=== PATIENT | female | born 1960 | race African-American/Black ===

== ENCOUNTER 2023-09-15 16:10 | Observation (INO) | payer OTHER, SELFPAY ==
[2023-09-15 13:30] VITALS: BP 136/91
[2023-09-15 14:07] VITALS: BMI 30.3
[2023-09-15 14:08] VITALS: BP 134/90
[2023-09-15 14:18] LABS: % Basophils 0.4 % (0-2); % Eosinophils 3.7 % (0-6); % Immature Granulocytes 0.2 % (0-0.5); % Monocytes 7.8 % (1.7-9.3); % Neutrophils 55.9 % (42.2-75.2); Absolute Eosinophils 0.2 10^3/uL (0-0.7); Absolute Lymphocytes 1.7 10^3/uL (1.2-3.4); Absolute Monocytes 0.4 10^3/uL (0.1-0.6); Absolute Neutrophils 2.9 10^3/uL (1.4-6.5); Hemoglobin 13.1 g/dL (12.0-16.0); Mean Corp Hgb Conc. 33.6 g/dL (33.0-37.0); Mean Corpuscular Hgb 26.5 pg (27.0-31.0); Mean Corpuscular Volume 78.9 fL (81.0-99.0); Mean Platelet Volume 9.4 fL (7.4-10.4); Nucleated Red Blood Cells % 0 %; Platelet Count 278 10^3/uL (130-400); Red Blood Cell Count 4.94 10^6/uL (4.20-5.40); Red Cell Dist. Width 13.4 % (11.5-14.5); White Blood Cell Count 5.2 10^3/uL (4.8-10.8)
[2023-09-15 14:28] LABS: ALT (SGPT) 17 U/L (0-35); AST (SGOT) 20 U/L (14-36); Alkaline Phosphatase 76 U/L (38-126); Blood Urea Nitrogen 18 mg/dl (7-17); Calcium 9.7 mg/dl (8.4-10.2); Carbon Dioxide 26 mmol/L (22-30); Chloride 107 mmol/L (98-107); Estimated Creatinine Clearance 76 ml/min; Glucose 98 mg/dl (70-99); Potassium 3.8 mmol/L (3.5-5.1); Sodium 139 mmol/L (135-145); Total Bilirubin 0.7 mg/dl (0.2-1.3); Total Protein 6.9 g/dl (6.3-8.2); eGFR > 60.00
[2023-09-15 14:32] LABS: INR 1.03; PT 13.4 Sec (11.4-14.6)
[2023-09-15 14:33] LABS: APTT 27.5 Sec (23.4-35.0)
--- NOTE | 2023-09-15 15:11 | ED.GENMED ---
History of Present Illness
General
Chief Complaint: Rectal Bleeding
Source: patient
Exam Limitations: none
Time Seen by Provider: 09/15/23 14:32
Nursing documentation reviewed up to this point in time: agreed with
Travel History
Have you had any contact with someone who has COVID-19?: No
Do you have any symptoms of coronavirus? Fever > 100 degrees, chills, cough, shortness of breath, sore throat, loss of taste or smell, muscle aches, or headache?: No
History of Present Illness
History of Present Illness:
63-year-old female presents to the emergency department complaining of bloody stools, abdominal pain and tarry stools 1 to 2 weeks ago. She has a history of inflammatory bowel disease patient follows with Dr. Méndez. She takes mesalamine. She
initially got tarry stools 1 week ago, and then Thursday she had mid abdominal pain. Yesterday she began having bloody stools with clots.
Past History
Past History
ED Past Medical History: CHF, Fibromyalgia, HTN, Renal failure and Other (Pneumonia)
ED Past Surgical History: Gynecological (Hysterectomy) and Orthopedic
Social History
Tobacco: Non-smoker
Alcohol: Daily
Drug: None
Personal:
Living: with family
Employment: Not employed
Family History
Family History: Other (Noncontributory)
Review of Systems
Review of Systems
Allergies reviewed?: Yes
All Other Systems: Not applicable
Constitutional: Reports no symptoms
EENT: Reports no symptoms
Respiratory: Reports no symptoms
Cardiac: Reports no symptoms
ABD/GI: Reports abdominal pain, bloody stools and black stools
: Reports no symptoms
Musculoskeletal: Reports no symptoms
Skin: Reports no symptoms
Neurological: Reports no symptoms
Endocrine: Reports no symptoms
Hematologic/Lymphatic: Reports no symptoms
Psychiatric: Reports no symptoms
Phy Exam
Physical Exam
Physical Exam:
Physical Exam
General: no apparent distress, not acutely ill
Neck: supple. no meningeal signs. normal posterior pharynx
Heart: s1/s2 regular rate and rhythm, no murmur. equal radial
pulses.
HEENT: Pupils equal round reactive to light, EOMI
Lungs: no acute respiratory distress. clear bilaterally
Abdomen: normal bowel sounds. not tender. no CVAT
Neuro: alert and oriented. no focal neurological deficits cranial nerves II through XII intact
Skin: no rash
Psychiatric: well kept. interactive and cooperative
Extremities: no edema. no calf tenderness. negative homans. good distal pulses
Course
Orders/Labs/Results
Orders:
Orders
09/15/23 14:06
Cardiac Monitoring- Treatment ONCE
IV Insert/Care/Rem.- Treatment PRN
O2 Therapy [RESP] Urgent
Titrate/Wean O2 to maintain O2 sat greater than (%): 93
Special Instructions: MAINTAIN CONTINOUS O2 SATS > OR = 93%
Pulse Ox/spot Check [RESP] Urgent
Quantity: 1
Special Instructions: ON ROOM AIR
09/15/23 14:08
Type+Screen Urgent
Complete Blood Count/With Diff Urgent
Comprehensive Metabolic Panel Urgent
PTT Urgent
Prothrombin Time Urgent
Abnormal Lab Results
09/15/23
14:08
MCV 78.9 L fL
(81.0-99.0)
MCH 26.5 L pg
(27.0-31.0)
BUN 18 H mg/dl
(7-17)
09/15/23 14:08
09/15/23 14:08
Vital Signs
Initial and Last Documented VS:
Initial Vital Signs
Temp Pulse Resp BP Pulse Ox
99.2 F 78 16 136/91 98
09/15/23 13:30 09/15/23 13:30 09/15/23 13:30 09/15/23 13:30 09/15/23 13:30
Last Documented Vital Signs
Temp Pulse Resp BP Pulse Ox
99.2 F 78 16 134/90 98
09/15/23 13:30 09/15/23 13:30 09/15/23 13:30 09/15/23 14:08 09/15/23 13:30
MDM/Problems Addressed
Differential Diagnosis Includes:
GI bleed, IBD flare.
MDM/Problems Addressed:
63-year-old female with IBD flare, rectal bleeding. Admit to hospitalist for further evaluation. GI to see.
Chronic conditions affecting care: Other (Inflammatory bowel disease)
Acute Exacerbation and/or Progression of Chronic Illness: Other (Inflammatory bowel disease)
*Pulse Oximetry
Patient hypoxic: no
*EKG
Interpreted by ED Provider?: NA
*Planning Manager Interpretation
Rate: Planning Manager- N/A
*Critical Care Note
Total Time (30-74mins, 75-104mins- exclusive of procedures): Not Applicable
Data Reviewed
Review of Other/Old Records Reveals: Operative Reports (Colonoscopy from 09/11/2022 shows diffuse moderate inflammation in the entire colon. 4 mm polyp ascending colon)
Source: records
Patient Management
Social determinants of health affecting care: Living situation
Discussion with other providers: Hospitalist and [employer] Ssis Developer (Gastroenterology Dr. Mcqueen)
Escalation/DeEscalation of care consider admission/obs:
admit indicated
ED Attending Note
-
Portions of this chart may have been created with voice recognition software.� Occasional wrong word or��sound alike� substitutions may have occurred due to the inherent limitations of voice recognition software.
Discharge Plan
Departure
Patient Disposition: Admit
Date of Disposition: 09/15/23
Time of Disposition: 15:20
Admit to: Med/Surg
Presentation/result/management discussed w/ accepting MD/DO: Hospitalist
Patient with high blood pressure during this ER visit?: Yes
Condition: Good
Discharge Problem:
Inflammatory bowel disease, Bright red rectal bleeding
Prescriptions:
No Action
spironolactone 25 MG tablet
12.5 mg PO DAILY
furosemide 80 MG tablet
80 mg PO DAILY
Theragen Tablet
1 tab PO DAILY
gabapentin 800 mg Tablet
800 mg PO BID
escitalopram oxalate [Lexapro] 10 mg Tablet
10 mg PO DAILY
mesalamine 1.2 gram Tablet,Delayed Release (Dr/Ec)
3.6 g PO DAILY
amlodipine-valsartan 5-320 mg Tablet
1 tab PO DAILY
Referrals:
Praveen Briggs DO [Family Provider] -
Interventions
Interventions:
*Risk Screen - Suicide Last Done: 09/15/23 14:15
*General Assessment Last Done: 09/15/23 14:15
*Neglect/Abuse Screening Last Done: 09/15/23 14:15
ED- Fall Risk Assessment Last Done: 09/15/23 14:12
TN-Nxzzlx-Zznirdokwa Assessment Last Done: 09/15/23 14:12
ED- Cardiac Assessment Last Done: 09/15/23 14:12
ED- Pulmonary Assessment Last Done: 09/15/23 14:12
Discharge Date and Time
Print Language: PASHTO
--- NOTE | 2023-09-15 15:30 | HPS.HSE ---
Family Physician
<SOWMYA Rowe - Last Filed: 09/15/23 16:13>
-
Family Physician: Praveen Briggs
Chief Complaint
<SOWMYA Rowe - Last Filed: 09/15/23 16:13>
-
rectal bleeding
History of Present Illness
63-year-old with past medical history for IBD, chronic fibromyalgia, hypertension presented to us with bloody stools since yesterday. Patient had a tarry diarrhea a week ago. Thursday night she had abdominal pain. Yesterday she started having
bloody stools. Today she had 5 episodes of bloody diarrhea. Patient also stated clots. denied any abdominal pain. Patient denied nausea vomiting. Patient denied any headache dizziness or syncopal episode. Patient denied any fever, chills, chest
pain, short of breath. Patient denied dysuria hematuria.
Hemoglobin stable at 13.1. Admitting for further management
Medical History
<SOWMYA Rowe - Last Filed: 09/15/23 16:13>
Past Medical History
Past Medical History: Reports Other
Additional Past Medical History:
Hyperlipidemia
Diastolic congestive heart failure
Sleep apnea
Colon polyps
Hypertension
Anemia
Asthma
Fibromyalgia
Type 2 diabetes
Polymyalgia rheumatica
Past Surgical History: Reports Other
Additional Past Surgical History:
Hysterectomy
Carpal tunnel release
Hysterectomy
Uvuloplasty
Hemorrhoidectomy
Social History
Alcohol: None
Drug: None and Marijuana (Occasionally)
Personal: Single
Living: Alone
Employment: Employed
Family History
Family History: Not pertinent
Allergies / Home Medications
Allergies reflects when Allergies were last updated in [facility].
Home Medications with original date entered in [facility]
Allergy/Medication List:
Allergies
Allergy/AdvReac Type Severity Reaction Status Date / Time
atorvastatin calcium Allergy joint Verified 09/15/23 13:29
[From Lipitor] swelling
Beta-Blockers Allergy migraine Verified 09/15/23 13:29
(Beta-Adrenergic Bloc
latex Allergy Hives Verified 09/15/23 13:29
oxycodone HCl [From Percocet] Allergy Pharmacy Verified 09/15/23 13:29
to Review
Penicillins Allergy Hives Verified 09/15/23 13:29
pregabalin [From Lyrica] Allergy legs Verified 09/15/23 13:29
Swelling
EKG electrodes Allergy bruised Uncoded 09/15/23 13:29
onion/garlic Allergy severe IBS Uncoded 09/15/23 13:29
Home Medications
furosemide 80 mg tablet 80 mg PO DAILY Fluid Retention/Swelling 12/31/13
spironolactone 25 mg tablet 12.5 mg PO DAILY Blood Pressure 12/31/13
amlodipine 5 mg-valsartan 320 mg tablet 1 tab PO DAILY Blood Pressure 09/15/23
escitalopram oxalate 10 mg tablet (Lexapro) 10 mg PO DAILY Mental Health 09/15/23
gabapentin 800 mg tablet 800 mg PO BID Pain 09/15/23
mesalamine 1.2 gram tablet,delayed release 3.6 g PO DAILY Gastrointestinal Issue 09/15/23
therapeutic multivitamin 1 tab PO DAILY Supplement 09/15/23
Review of Systems
<SOWMYA Rowe - Last Filed: 09/15/23 16:13>
-
Constitutional: Reports No Symptoms
EENT: Reports No Symptoms
Respiratory: Reports No Symptoms
Cardiac: Reports No Symptoms
Abdomen/GI: Reports Abdominal Pain and Bloody Stools
: Reports No Symptoms
Musculoskeletal: Reports No Symptoms
Skin: Reports No Symptoms
Neurological: Reports No Symptoms
Endocrine: Reports No Symptoms
Hematologic/Lymphatic: Reports No Symptoms
Psych: Reports No Symptoms
Physical Exam
<SOWMYA Rowe - Last Filed: 09/15/23 16:13>
Vital Signs
Vital Signs
Temp Pulse Resp BP Pulse Ox
99.2 F 78 16 134/90 98
09/15/23 13:30 09/15/23 13:30 09/15/23 13:30 09/15/23 14:08 09/15/23 13:30
Physical Exam
General: Well Developed, Well Nourished and No Apparent Distress
HEENT: NormoCephalic, Moist mucous membranes and Atraumatic
Respiratory: Clear
Cardiac: S1/S2 and Regular Rhythm; No Murmur or Rub
GI: Soft, Non Tender, Non Distended and Normal Bowel Sounds; No Organomegaly
Rectal: Deferred by Provider
Musculoskeletal: No Clubbing, No Cyanosis and No Edema
Skin: No Rash
Neuro: AO x 3 and Nonfocal/grossly intact
Psych: Calm
Laboratory Results
<SOWMYA Rowe - Last Filed: 09/15/23 16:13>
-
09/15/23 14:08
09/15/23 14:08
Laboratory Results
PT 13.4 Sec (11.4-14.6) 09/15/23 14:08
INR 1.03 09/15/23 14:08
APTT 27.5 Sec (23.4-35.0) 09/15/23 14:08
Total Bilirubin 0.7 mg/dl (0.2-1.3) 09/15/23 14:08
AST 20 U/L (14-36) 09/15/23 14:08
ALT 17 U/L (0-35) 09/15/23 14:08
Alkaline Phosphatase 76 U/L (38-126) 09/15/23 14:08
Data Reviewed
<SOWMYA Rowe - Last Filed: 09/15/23 16:13>
-
Lab Data: Labs Reviewed by me
Impression/Plan
<SOWMYA Rowe - Last Filed: 09/15/23 16:13>
-
# Rectal bleeding likely IBD flare
-Hemoglobin stable at 13.1
-Continue to monitor hemoglobin
-Mesalamine continued
-NPO
-fluids continued for hydration
-stool culture, c diff, norovirus
-ESR, CRP
-fluids continued for hydration.
# Essential hypertension
-Blood pressure stable
-Amlodipine/valsartan continued
# Anxiety/depression
-Lexapro continued
# History of diastolic CHF
-Patient is not in acute exacerbation
-hold Lasix and spironolactone
-ECHO (2016) with EF of 60-65%
# History for fibromyalgia
-Gabapentin continued
#Diet-controlled diabetes.
# DVT prophylaxis
-SCD
# CODE STATUS
-Full code
<Giancarlo Wyatt DO - Last Filed: 09/15/23 16:24>
-
# Rectal bleeding likely IBD flare
-Hemoglobin stable at 13.1
-Continue to monitor hemoglobin
-Mesalamine continued
-NPO
-fluids continued for hydration
-stool culture, c diff, norovirus
-ESR, CRP
-fluids continued for hydration.
# Essential hypertension
-Blood pressure stable
-Amlodipine/valsartan continued
# Anxiety/depression
-Lexapro continued
# History of diastolic CHF
-Patient is not in acute exacerbation
-hold Lasix and spironolactone
-ECHO (2016) with EF of 60-65%
# History for fibromyalgia
-Gabapentin continued
#Diet-controlled diabetes.
# DVT prophylaxis
-SCD
# CODE STATUS
-Full code
Attending note:
Patient seen and examined and discussed with BLAZE Preston, and I agree with her note.
Gen-AAOx3, NAD, obese
HEENT-NC, AT, anicteric, clear oral mm
Neck-supple
CV-reg, no M, +S1/S2
Lungs-clear B/L
Abd-soft, NT, ND
Ext-no edema
Musculoskeletal-no cyanosis, clubbing
Skin-warm and dry
Neuro-grossly non-focal
Psych-calm, cooperative
Acute lower GI bleed -hemodynamically stable. Admit to MedSurg. Monitor hemoglobin. Etiology could be due to IBD flare versus other etiology including acute colitis of infectious source. Doubt ischemic colitis.
N.p.o., IV fluids. Consult GI. Check stool studies.
Inflammatory bowel disease -diagnosed on colonoscopy in September 2022. Has been under good control on mesalamine up until 2 weeks ago when her stools changed to diarrhea-like, subsequently had tarry stools 1 week ago and hematochezia that started
yesterday. Followed by Dr. Méndez.
Essential hypertension -controlled.
Chronic heart failure preserved EF -stable. Can hold diuretics for now.
Diet-controlled diabetes
Fibromyalgia
Anxiety/depression
Obesity due to excess calories
Full code
[2023-09-15 16:30] VITALS: BP 145/104
[2023-09-15 16:48] LABS: Erythrocyte Sed Rate 10 mm/hour (0-20)
[2023-09-15 17:23] LABS: C-Reactive Protein < 5.00 mg/L (0.0-10.00)
[2023-09-15 17:27] VITALS: BMI 29.4
[2023-09-15 17:28] VITALS: BP 137/90
[2023-09-15 18:27] VITALS: BMI 29.4
[2023-09-15] MEDS: NSS 1000 IV (20:33)
[2023-09-15] MEDS: PROTONIX IV 40 MG IV (20:35)
[2023-09-15] MEDS: NSS (PRESERVATIVE FREE) 10 ML IV (20:35)
[2023-09-15] MEDS: NEURONTIN 800 MG PO (20:35)
[2023-09-15] MEDS: FLUSH (NSS) 2 FLUSH IV (20:36)
[2023-09-15 23:00] VITALS: BP 130/80
--- NOTE | 2023-09-16 03:12 | DOWNTIME ---
There was a [employer] Downtime on 09/15/2023 from 0100 to 09/16/2023 at 0300. Downtime documentation of patient's care, including medication administrations, has been reconciled in the electronic record per guidelines. Refer to the
patient's paper chart under the miscellaneous tab to see printed paper medication records and downtime forms.
[2023-09-16 05:47] VITALS: BMI 29.3
[2023-09-16 06:51] LABS: Hematocrit 39.5 % (37.0-47.0); Hemoglobin 12.7 g/dL (12.0-16.0); Mean Corp Hgb Conc. 32.2 g/dL (33.0-37.0); Mean Corpuscular Hgb 26.2 pg (27.0-31.0); Mean Corpuscular Volume 81.6 fL (81.0-99.0); Mean Platelet Volume 9.5 fL (7.4-10.4); Platelet Count 248 10^3/uL (130-400); Red Blood Cell Count 4.84 10^6/uL (4.20-5.40); Red Cell Dist. Width 13.5 % (11.5-14.5); White Blood Cell Count 5.4 10^3/uL (4.8-10.8)
[2023-09-16 07:00] VITALS: BP 216/85
[2023-09-16 07:31] LABS: Blood Urea Nitrogen 13 mg/dl (7-17); Calcium 9.5 mg/dl (8.4-10.2); Carbon Dioxide 24 mmol/L (22-30); Chloride 110 mmol/L (98-107); Estimated Creatinine Clearance 65 ml/min; Glucose 95 mg/dl (70-99); Potassium 4.3 mmol/L (3.5-5.1); Sodium 141 mmol/L (135-145); eGFR > 60.00
--- NOTE | 2023-09-16 08:19 | CON.GI ---
Addendum entered and electronically signed by Megha Grijalva NP 09/16/23 14:28:
Reviewed case with Dr. Méndez (her outpatient GI doctor) would treat with oral vancomycin 125mg 4 times daily for 10 days given Cdiff Ag + despite toxin negative. With history of IBD would treat. Plan for follow-up as noted in 2 weeks.
Addendum entered and electronically signed by Ace Mcqueen MD 09/16/23 13:56:
I saw and examined the patient.
The DIRECTOR INFORMATION or PA's note was reviewed and I agree with the note.
Comment:
Pt with a hx of known ulcerative colitis, htn, hyperlipidemia, rectal carcinoid with rectal bleeding with stable hgb. Has had chronic diarrhea and is on mesalamine 3.6gm day, no suppositories. Did have a colonoscopy 1 yr ago and is followed by
[facility]. Did have bm today with no blood. No abdominal pain
abd: soft, nontender s+
impression:
ulcerative colitis
chronic diarrhea
rectal bleeding (with stable hgb)
plan:
increase mesalamine to 4.8 gm/day
stool studies
canasa suppositories
advance to regular diet
Dr Méndez aware and f/u appt scheduled for 10/01
if tolerates diet and no more bleeding can f/u as outpatient.
Original Note:
Consultation
-
Date/Time Consultation Requested: 09/15/23 @ 17:17
Date/Time Consultation Performed: 09/16/23 @ 08:30
Requesting Provider: SOWMYA Rowe
Performing Provider: SOWMYA Santizo; Dr. Ace Mcqueen
Reason for Consultation: rectal bleeding
Medical History
Chief Complaint / HPI
Chief Complaint: rectal bleeding
History of Present Illness:
The patient is a 63-year-old female with a past medical history significant for hypertension, hyperlipidemia, CHF, GERD, pre-diabetes, fibromyalgia, history of rectal carcinoid, ulcerative pancolitis on mesalamine, who presented to the emergency
room complaints of rectal bleeding, which we are being asked to evaluate for. Upon review of outpatient records, she is known to Dr. Méndez in our office, last seen in January for follow-up of diarrhea. She underwent colonoscopy last September which
showed evidence of erythema in the entire colon and random biopsy showing acute and chronic moderate inflammation suggesting inflammatory bowel disease. She was placed on Lialda 3.6 g daily at that time. After being placed on this her stools
improved and she was having no further diarrhea or bleeding. Historically has a history of a carcinoid tumor of the rectum which was not evident on her most recent colonoscopy last year. Historically she has had elevated liver enzymes with
negative underlying liver workup including hepatitis A, B, C, AMA, ASMA, ceruloplasmin, and for 1 antitrypsin, and iron studies. Her prior celiac testing was also negative. Prior abdominal ultrasound did not demonstrate any fatty liver disease.
Today she reports on Thursday she developed some discomfort in her abdomen. She later in the day she noticed dark red blood in the toilet bowl along with bright red blood and clots. She notes that prior to this she was having occasional diarrhea but
did not see any blood. She denies any significant constipation or straining leading up to this event. She notes that on average she moves her bowels with formed soft stools a few times daily since being on Lialda. She notes prior history of GI
bleeding in 2016, requiring subsequent hemorrhoidectomy in May 2017. She denies use of blood thinners, but does take ibuprofen about once monthly for fibromyalgia pains. She notes that she did feel like she was in 'the twilight zone' yesterday
and Thursday but this also has resolved. She otherwise denies any fevers, chills, dizziness, lightheadedness, nausea, vomiting, unintentional weight loss, loss of appetite, chest pain, or shortness of breath. She notes that the blood has been less
over the course of last night and this morning. She notes that her last bowel movement as of this morning only had some blood on the tissue with brown stool in the toilet bowl. She denies any further pain at this point in time. She denies any
recent travel, recent antibiotics, or abnormal diet changes. She denies use of NSAIDs or blood thinners. Prior EGD and colonoscopy as noted below. She denies any family history for IBD or colon cancer. Routine labs on admission showed no
significant or concerning findings. CRP was normal. She was made n.p.o., placed on twice daily PPI IV, and admitted for further evaluation by GI. Stool studies were sent and are pending.
Past Medical History
Past Medical History: CHF, Fibromyalgia, GERD, HTN, Hypercholesterolemia, NIDDM (Prediabetes not on medication) and Other (Polymyalgia rheumatica, sleep apnea, history of colon polyps, history of carcinoid tumor of the rectum, ulcerative pancolitis)
Past Surgical History: Gynecological (Hysterectomy) and Other (Carpal tunnel release, uvuloplasty, hemorrhoidectomy)
Social History
Tobacco: Non-Smoker
Alcohol: Occasional (1-2 drinks weekly)
Drug: None
Family History
Family History: Reviewed & Not Pertinent
Allergies / Home Medications
Allergy/AdvReac Type Severity Reaction Status Date / Time
atorvastatin calcium Allergy joint Verified 09/15/23 13:29
[From Lipitor] swelling
Beta-Blockers Allergy migraine Verified 09/15/23 13:29
(Beta-Adrenergic Bloc
garlic Allergy SEVERE IBS Verified 09/15/23 17:21
latex Allergy Hives Verified 09/15/23 13:29
onion Allergy SEVERE IBS Verified 09/15/23 17:21
oxycodone HCl [From Percocet] Allergy pt now Verified 09/15/23 17:21
denies
this
allergy
states it
was 25
years ago
Penicillins Allergy Hives Verified 09/15/23 13:29
pregabalin [From Lyrica] Allergy legs Verified 09/15/23 13:29
Swelling
EKG electrodes Allergy bruised Uncoded 09/15/23 13:29
�Medication �Instructions �Recorded
furosemide 80 mg tablet 80 mg PO DAILY Fluid 08/30/14
Retention/Swelling
spironolactone 25 mg tablet 12.5 mg PO DAILY Blood Pressure 12/31/13
amlodipine 5 mg-valsartan 320 mg 1 tab PO DAILY Blood Pressure 09/15/23
tablet
escitalopram oxalate 10 mg tablet 10 mg PO DAILY Mental Health 09/15/23
(Lexapro)
gabapentin 800 mg tablet 800 mg PO BID Pain 09/15/23
mesalamine 1.2 gram tablet,delayed 3.6 g PO DAILY Gastrointestinal 09/15/23
release Issue
therapeutic multivitamin 1 tab PO DAILY Supplement 09/15/23
Review of Systems
-
History Source: Patient
Constitutional: Reports No Symptoms
EENT: Reports No Symptoms
Respiratory: Reports No Symptoms
Cardiac: Reports No Symptoms
Abdomen/GI: Reports Abdominal Pain and Bloody Stools
: Reports No Symptoms
Musculoskeletal: Reports No Symptoms
Skin: Reports No Symptoms
Neurological: Reports No Symptoms
Vital Signs
Temp Pulse Resp BP Pulse Ox
98.3 F 62 18 130/80 98
09/15/23 23:00 09/15/23 23:00 09/15/23 23:00 09/15/23 23:00 09/15/23 23:00
Physical Exam
Exam
General: Well Developed, Well Nourished and No Apparent Distress
HEENT: Normocephalic and Atraumatic
Respiratory: Clear
Cardiac: S1/S2 and Regular Rhythm
Breast: Deferred by me
GI: Soft, Non Tender, Non Distended and Normal Bowel Sounds
Musculoskeletal: No Edema
Skin: Warm and Dry
Neuro: Awake, Alert and Oriented
Psych: Calm
Results
WBC 5.4 10^3/uL (4.8-10.8) 09/16/23 06:33
Hgb 12.7 g/dL (12.0-16.0) 09/16/23 06:33
Hct 39.5 % (37.0-47.0) 09/16/23 06:33
MCV 81.6 fL (81.0-99.0) 09/16/23 06:33
Plt Count 248 10^3/uL (130-400) 09/16/23 06:33
Absolute Neuts (auto) 2.9 10^3/uL (1.4-6.5) 09/15/23 14:08
PT 13.4 Sec (11.4-14.6) 09/15/23 14:08
INR 1.03 09/15/23 14:08
APTT 27.5 Sec (23.4-35.0) 09/15/23 14:08
Sodium 141 mmol/L (135-145) 09/16/23 06:33
Potassium 4.3 mmol/L (3.5-5.1) 09/16/23 06:33
Chloride 110 mmol/L (98-107) H 09/16/23 06:33
Carbon Dioxide 24 mmol/L (22-30) 09/16/23 06:33
BUN 13 mg/dl (7-17) 09/16/23 06:33
Creatinine 0.8 mg/dL (0.6-1.0) 09/16/23 06:33
Calcium 9.5 mg/dl (8.4-10.2) 09/16/23 06:33
Total Bilirubin 0.7 mg/dl (0.2-1.3) 09/15/23 14:08
AST 20 U/L (14-36) 09/15/23 14:08
ALT 17 U/L (0-35) 09/15/23 14:08
Alkaline Phosphatase 76 U/L (38-126) 09/15/23 14:08
Prior GI Procedures:
EGD: 05/16/2014 Dr. Méndez: Normal examined duodenum. Erosive gastropathy. Biopsied. Erythematous duodenopathy. Biopsied. Z-line variable, 37 cm from the incisors. Biopsied. No gross lesions in esophagus. Duodenal biopsies negative for celiac.
Duodenal bulb erythema biopsies showing chronic inflammation. Antral biopsies showing mild chronic gastritis negative for H. pylori. EG junction biopsies negative for Cisneros's.
Colonoscopy: 09/11/2022 Dr. Méndez: The examined portion of the ileum was normal. Diffuse moderate inflammation was found in the entire examined colon. Biopsied. One 4 mm polyp in the ascending colon, removed with a cold snare. Resected and
retrieved. Random biopsies of the colon and rectum showing a moderately active chronic colitis/proctitis showing cryptitis, crypt abscess, and mild architectural distortion and moderately increased lamina propria chronic inflammation, negative for
dysplasia. Polyp benign.
Assessment / Plan
-
The patient is a 63-year-old female with a past medical history significant for hypertension, hyperlipidemia, CHF, GERD, pre-diabetes, fibromyalgia, history of rectal carcinoid, ulcerative pancolitis on mesalamine, who presented to the emergency
room complaints of rectal bleeding, which we are being asked to evaluate for. She presents with acute onset of abdominal discomfort associated with rectal bleeding with bright red blood along with dark red blood with clots, which is improving. No
precipitating factors leading up to this such as recent antibiotic use, recent travel, or changes in diet. She denies any significant constipation or straining. She does have a history of hemorrhoidectomy in 2018 but has had no recurrent bleeding
since then. She is compliant with her mesalamine for ulcerative colitis. CRP is normal. She has no further pain and the bleeding is improving.
Problem list:
-Rectal bleeding, improving
-History of arreola ulcerative colitis on Lialda 3.6 g daily
-History of carcinoid tumor of the rectum but no recurrent
Other medical history:
-CHF
-GERD
-Fibromyalgia
-Hypertension
-Prediabetes
-Hyperlipidemia
-History of abnormal LFTs, currently normal
Recommendations:
-Etiology of rectal bleeding possibly hemorrhoidal versus UC flare versus other. Currently with no significant bleeding with normal CRP and ESR. She has no further abdominal pain.
-At this time we will trend H&H
-Started on clear liquid diet
-Monitor for recurrent bleeding
-Send fecal calprotectin and follow stool studies. Noted was C. difficile antigen positive but toxin negative, pending stool culture, norovirus. Will add Giardia/crypto.
-If stool studies are negative, consider Canasa suppositories to see if bleeding improves. Will review with Dr. Mcqueen.
-If any recurrent pain to consider CT imaging
-She would likely need a repeat colonoscopy, which can be done outpatient if she remains stable with no further significant bleeding.
-Will follow
-
-
Thank you for consultation and allowing me to participate in the patient's care. Please call the admissions gate attendant GI physician during the after hours with any questions or concerns.
[2023-09-16] MEDS: DIOVAN 320 MG PO (08:44)
[2023-09-16] MEDS: NEURONTIN 800 MG PO (08:44)
[2023-09-16] MEDS: THERAGRAN 1 TABLET PO (08:45)
[2023-09-16] MEDS: LEXAPRO 10 MG PO (08:45)
[2023-09-16] MEDS: NORVASC 5 MG PO (08:45)
[2023-09-16] MEDS: PROTONIX IV 40 MG IV (08:49)
[2023-09-16] MEDS: NSS (PRESERVATIVE FREE) 10 ML IV (08:49)
[2023-09-16] MEDS: ASACOL, DELZICOL DR 1200 MG PO ×2 (10:51→15:40)
[2023-09-16] MEDS: NSS 1000 IV (10:51)
--- NOTE | 2023-09-16 10:54 | W.PN.HOSP.TC ---
Addendum entered and electronically signed by Giancarlo Wyatt DO 09/16/23 14:03:
Diet advanced to low residue by GI service.
I spoke with gastroenterology and they feel comfortable discharging today.
Mesalamine to be increased to 4.8 g daily, Canasa suppository before bed.
Gastrology recommends outpatient follow-up.
Original Note:
Today's Communication/Plan
-
Monitor hemoglobin
Diet per GI
Assessment / Plan
Assessment / Plan
Gen-AAOx3, NAD
HEENT-NC, AT, anicteric, clear oral mm
Neck-supple
CV-reg, no M, +S1/S2
Lungs-clear B/L
Abd-soft, NT, ND
Ext-no edema
Musculoskeletal-no cyanosis, clubbing
Skin-warm and dry
Neuro-grossly non-focal
Psych-calm, cooperative
Acute lower GI bleed -hemodynamically stable. Inflammatory markers normal, IBD flare seems unlikely. Etiology of GI bleed unclear but hemorrhoidal bleeding possible. Patient states she had hemorrhoids that were treated a few years ago. She is
unsure if she still has hemorrhoids. Clinically stable, hemoglobin stable. Clear liquid diet ordered by GI.
Inflammatory bowel disease -diagnosed on colonoscopy in September 2022. Has been under good control on mesalamine up until 2 weeks ago when her stools changed to diarrhea-like, subsequently had tarry stools 1 week ago and hematochezia that started
yesterday. Followed by Dr. Méndez.
Essential hypertension -controlled.
Chronic heart failure preserved EF -stable. Can hold diuretics for now.
Diet-controlled diabetes
Fibromyalgia
Anxiety/depression
Obesity due to excess calories
Full code
Anticipated Discharge: Within 24 hours
Subjective/Interval History
-
Date of Service: September 16, 2023
Patient seen and examined. Had less blood in her stools this morning. Stools are brown. No abdominal pain. No pain with bowel movements.
Objective Data
-
Labs:
Laboratory Results
09/16/23 09/16/23
06:33 12:00
WBC 5.4
Hgb 12.7 Pending
Hct 39.5 Pending
Plt Count 248
Sodium 141
Potassium 4.3
Chloride 110 H
Carbon Dioxide 24
BUN 13
Creatinine 0.8
Glucose 95
Calcium 9.5
Vital Signs:
Vital Signs
Temp Pulse Resp BP Pulse Ox
98.0 F 61 17 126/85 100
09/16/23 07:00 09/16/23 08:45 09/16/23 07:00 09/16/23 08:45 09/16/23 07:00
I&O
09/15/23 09/16/23 09/17/23
06:59 06:59 06:59
Intake Total 550 / 550
Balance 550 / 550
Review of Systems
-
History Source: Patient
All other systems: Reviewed and negative
[2023-09-16 12:13] LABS: Hematocrit 39.4 % (37.0-47.0); Hemoglobin 12.8 g/dL (12.0-16.0)
--- NOTE | 2023-09-16 13:09 | CM ---
Reviewed chart, met with patient to obtain information for assessment. Patient stated that she lives alone in a two story home with no steps to enter. Patient described herself as independent with her ADLs, personal care, bathing, dressing and
ambulation. 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 She drives and can get herself to appointments and does her own shopping.
Patient has had VN services but in the very distant past. She has never been to a SNF.
Patient has a prescription plan and uses, [facility] for all of her medications.
Her PCP is Praveen Toure.
Patient stated that physically she feels she is at her baseline and will be able to return home when stable medically.
Obs letter provided, explained and is on chart.
Plan: Case management will continue to follow and assist with discharge planning. Home when stable.
--- NOTE | 2023-09-16 14:09 | W.DS.TRANS ---
DC Summary - Network Strategist
-
Discharge Instructions:
Discharge Diagnosis/Procedures Lower GI bleed, ulcerative colitis
Diet Low Residue
Activity As tolerated
Driving Restrictions As prior to admission
Bathing Restrictions None
Instructions:
Stand-Alone Forms:
Changes to Home Medications: Yes
Discharge Medications:
DC Medications w/original date entered in [employer]
furosemide 80 mg tablet 80 mg PO DAILY Fluid Retention/Swelling 12/31/13
spironolactone 25 mg tablet 12.5 mg PO DAILY Blood Pressure 12/31/13
amlodipine 5 mg-valsartan 320 mg tablet 1 tab PO DAILY Blood Pressure 09/15/23
escitalopram oxalate 10 mg tablet (Lexapro) 10 mg PO DAILY Mental Health 09/15/23
gabapentin 800 mg tablet 800 mg PO BID Pain 09/15/23
therapeutic multivitamin 1 tab PO DAILY Supplement 09/15/23
mesalamine 1,000 mg rectal suppository (Canasa) 1 g [place] HS 4 weeks #30 ea 09/16/23
mesalamine 1.2 gram tablet,delayed release 4.8 g (4 x 1.2 gram) PO DAILY Gastrointestinal Issue #120 tabs 09/16/23
Home Medication Changes
Mesalamine dose increased to 4.8 g daily.
Pending Results: No
[2023-09-16 15:00] VITALS: BP 142/86
[2023-09-19 06:20] LABS: Calprotectin, Fecal 19 ug/g (<=49)
== END 2023-09-16 16:43 | disposition home or self-care (01) ==
LOC: 3 WEST ACU 16:10
PROVIDERS: Nurse Practitioner Family; Registered Nurse; ADMITTING PHYSICIAN Hospitalist; CONSULT PHYSICIAN Internal Medicine; EMERGENCY PHYSICIAN Emergency Medicine; FAMILY PHYSICIAN Internal Medicine
DX: K92.2 Gastrointestinal hemorrhage, unspecified (principal); K51.00 Ulcerative (chronic) pancolitis without complications; I11.0 Hypertensive heart disease with heart failure; I50.32 Chronic diastolic (congestive) heart failure; M79.7 Fibromyalgia; G47.30 Sleep apnea, unspecified; J45.909 Unspecified asthma, uncomplicated; E11.9 Type 2 diabetes mellitus without complications; M35.3 Polymyalgia rheumatica; K21.9 Gastro-esophageal reflux disease without esophagitis; F32.A Depression, unspecified; E78.00 Pure hypercholesterolemia, unspecified; F41.9 Anxiety disorder, unspecified; E66.09 Other obesity due to excess calories; Z68.29 Body mass index [BMI] 29.0-29.9, adult; Z91.040 Latex allergy status; Z88.5 Allergy status to narcotic agent; Z88.0 Allergy status to penicillin; Z87.01 Personal history of pneumonia (recurrent); Z91.018 Allergy to other foods; Z86.010 Personal history of colon polyps; Z88.8 Allergy status to other drugs, medicaments and biological substances
CPT/HCPCS: 80048; 80053; 83993; 85014; 85018; 85025; 85027; 85610; 85652; 85730; 86140; 86850; 86900; 86901; 87045; 87046; 87324; 87328; 87329; 87427; 87449; 87798; 89055; 94660; 99285; G0378

== ENCOUNTER → 2023-10-02 11:35 | Outpatient (REF) | payer OTHER, SELFPAY | LOC: RAD 11:35 | PROVIDERS: ATTENDING PHYSICIAN Nurse Practitioner Family; FAMILY PHYSICIAN Internal Medicine | DX: R10.32 Left lower quadrant pain (principal) | CPT/HCPCS: 74177; Q9967 ==

== ENCOUNTER → 2024-02-19 06:27 | Day surgery (SDC) | payer OTHER, SELFPAY | LOC: GI 06:27 | PROVIDERS: ATTENDING PHYSICIAN Internal Medicine Gastroenterology | DX: Z09 Encounter for follow-up examination after completed treatment for conditions other than malignant neoplasm (principal); Z87.19 Personal history of other diseases of the digestive system | CPT/HCPCS: 45331; 88305 ==